=== PATIENT | male | born 1995 | race Two or more races ===

== ENCOUNTER 2018-09-08 12:03 | Emergency (ER) | payer SELFPAY ==
[2018-09-08 12:14] VITALS: BP 128/65
--- NOTE | 2018-09-08 13:11 | ER Document Report ---
HPI - HPI Time Seen by Provider: 09/08/18 13:02 Pain Level: 1 Notes: Patient is an otherwise healthy 23-year-old male who presents to the emergency department with concern as stitches are coming out of his oral surgery sites. He states that he had his wisdom teeth removed to bilateral upper and lower on Monday. He reports things are going well, his pain is well controlled with the ibuprofen they have placed him on but this morning he felt like he can feel 1 of the stitches on the right lower side. - CARDIOVASCULAR Cardiovascular: DENIES: Chest pain - GASTROINTESTINAL Gastrointestinal: DENIES: Abdominal Pain - URINARY Urinary: DENIES: Dysuria Past Medical History - General Information source: Patient - Social History Smoking Status: Never Smoker Chew tobacco use (# tins/day): No Frequency of alcohol use: None Drug Abuse: None Family History: Reviewed & Not Pertinent Patient has suicidal ideation: No Patient has homicidal ideation: No - Medical History Medical History: Negative Renal/ Medical History: Denies: Hx Peritoneal Dialysis Past Surgical History: Reports: Hx Oral Surgery - Immunizations Immunizations up to date: Yes Vertical Provider Document - CONSTITUTIONAL Notes: PHYSICAL EXAMINATION: GENERAL: Well-appearing, well-nourished and in no acute distress. HEAD: Atraumatic, normocephalic. EYES: Pupils equal round extraocular movements intact, conjunctiva are normal. ENT: Nares patent, sutures noted to bilateral lower jaw line near what would be tooth #17 and 32. NECK: Normal range of motion LUNGS: No respiratory distress Musculoskeletal: Normal range of motion NEUROLOGICAL: Normal speech, normal gait. PSYCH: Normal mood, normal affect. SKIN: Warm, Dry, normal turgor, no rashes or lesions noted. - INFECTION CONTROL TRAVEL OUTSIDE OF THE [place] IN LAST 30 DAYS: No Course - Re-evaluation Re-evalutation: 09/08/18 13:09 No signs of infection noted. I do see one suture hanging however the knot is still intact. I am not going to remove the surgeons sutures at this time. Patient encouraged to continue taking his ibuprofen. Patient states he is unsure when he is supposed to follow-up with his oral surgeon. I encourage patient and to please call the oral surgeon's office this week Monday or Monday as Monday is a holiday to find out if they have to follow-up to have the sutures removed and if so when. - Vital Signs Vital signs: Temp Pulse Resp BP Pulse Ox 98.4 F 59 L 18 128/65 H 100 09/08/18 12:13 09/08/18 12:13 09/08/18 12:13 09/08/18 12:13 09/08/18 12:13 Discharge - Discharge Clinical Impression: Suture check Condition: Stable Disposition: HOME, SELF-CARE Additional Instructions: There does not appear to be any issue with the sutures that are in your mouth. Please call your oral surgeon on Monday to find out when they want you to return for a follow-up. Please continue taking the ibuprofen as prescribed by your oral surgeon. Return to the emergency department if you experience a high fever significant swelling to your face or any other symptom that is concerning to you.
== END 2018-09-08 13:15 | disposition home or self-care (01) ==
LOC: ER 12:03
DX: Z48.814 Encounter for surgical aftercare following surgery on the teeth or oral cavity (principal)
CPT/HCPCS: 99282